=== PATIENT | male | born 1955 | race Caucasian/White ===

== ENCOUNTER 2016-11-05 11:49 | Emergency (ER) | payer OTHER ==
[2016-11-05 12:27] LABS: INR 3.3 (0.9-1.2); PROTHROMBIN TIME 32.8 SECONDS (11.7-14.0); PTT 50.2 SECONDS (23.2-31.4)
== END 2016-11-05 13:40 | disposition home or self-care (01) ==
LOC: FER 11:49
PROVIDERS: Internal Medicine
DX: R04.0 Epistaxis (principal); Z88.0 Allergy status to penicillin; Z88.5 Allergy status to narcotic agent; Z79.01 Long term (current) use of anticoagulants
CPT/HCPCS: 36415; 85610; 85730